=== PATIENT | male | born 1995 | race Caucasian/White ===

== ENCOUNTER 2022-04-04 16:41 | Inpatient (IN) | payer BC ==
[2022-04-04 17:44] LABS: BASO % 0.6 % (0-2.0); EOS % 0.9 % (0-4.5); HEMATOCRIT 29.8 % (35.4-49); HEMOGLOBIN 10.1 GM/dL (11.7-16.9); LYMPH % 6.5 % (8-40); MCH 28.4 pg (25.7-33.7); MCHC 33.8 g/dl (32.0-35.9); MEAN CELL VOLUME 84.1 fl (80-96); MEAN PLT VOLUME 7.4 fl (7.5-11.1); MONO % 4.8 % (3.8-10.2); NEUT % 87.2 % (42.8-82.8); PLATELET COUNT 322 10^3/uL (134-434); RBC 3.54 M/mm3 (4.00-5.60); RDW 16.8 % (11.9-15.9); WHITE BLOOD COUNT 9.6 K/mm3 (4.0-10.0)
[2022-04-04 18:02] LABS: CHLORIDE 92 mmol/L (98-107); SODIUM 131 mmol/L (136-145)
[2022-04-04 18:04] LABS: ALBUMIN 3.1 g/dl (3.4-5.0); ANION GAP 13 MMOL/L (8-16); BLOOD UREA NITROGEN 61.1 mg/dL (7-18); CALCIUM 8.8 mg/dL (8.5-10.1); CO2 26 mmol/L (21-32); GLUCOSE,RANDOM 108 mg/dL (74-106)
[2022-04-04 18:07] LABS: SGOT/AST 12 U/L (15-37); SGPT/ALT 6 U/L (13-61)
[2022-04-04 18:08] LABS: VENOUS BASE EXCESS -0.1 mmol/L (-2-2); VENOUS O2 SATURATION 17.3 % (70-80); VENOUS PCO2 52.9 mmHg (38-52); VENOUS PH 7.318 (7.310-7.410)
[2022-04-04 18:09] LABS: BILIRUBIN,TOTAL 0.6 mg/dL (0.2-1); TOT PROT 8.5 g/dl (6.4-8.2)
[2022-04-04 18:10] LABS: ALK PHOS 91 U/L (45-117)
[2022-04-04 18:11] LABS: CREATININE 17.5 mg/dL (0.55-1.3)
[2022-04-04] MEDS ORDERED: DEXTROSE 5% IVPB SCH (19:15)
[2022-04-04] MEDS ORDERED: WATER IVPB SCH (19:15)
[2022-04-04] MEDS ORDERED: GENTAMICIN IVPB SCH (19:15)
[2022-04-04] MEDS ORDERED: HEPARIN NA (PORCINE) 5,000 UNITS/ML 1ML VIAL SQ SCH (22:15)
[2022-04-04 23:12] LABS: LDH 207 U/L (87-246)
[2022-04-05] MEDS: ACETAMINOPHEN 325 MG TABLET (FP) PO PRN ×2 (03:08→20:35)
[2022-04-05] MEDS ORDERED: VANCOMYCIN 1 GM in D5W (PRE-DOCKED) 1,000 MG/250 ML IVPB ONE (03:15)
[2022-04-05 04:08] VITALS: BMI 36.7
[2022-04-05] MEDS: HEPARIN NA (PORCINE) 5,000 UNITS/ML 1ML VIAL SQ SCH ×3 (05:56→22:02)
[2022-04-05 08:49] LABS: BASO % 0.4 % (0-2.0); HEMATOCRIT 26.5 % (35.4-49); HEMOGLOBIN 9.2 GM/dL (11.7-16.9); LYMPH % 14.5 % (8-40); MCHC 34.6 g/dl (32.0-35.9); MEAN CELL VOLUME 83.8 fl (80-96); MEAN PLT VOLUME 7.5 fl (7.5-11.1); NEUT % 75.1 % (42.8-82.8); PLATELET COUNT 284 10^3/uL (134-434); RBC 3.17 M/mm3 (4.00-5.60); RDW 16.3 % (11.9-15.9); WHITE BLOOD COUNT 7.9 K/mm3 (4.0-10.0)
[2022-04-05 09:06] LABS: MAGNESIUM 2.2 mg/dL (1.8-2.4)
[2022-04-05 09:09] LABS: PHOSPHOROUS 6.6 mg/dL (2.5-4.9)
[2022-04-05] MEDS ORDERED: PIPERACILLIN/TAZOBACTAM 2.25 GM VIAL IVPB ONE ×2 (10:30→17:17)
[2022-04-05] MEDS ORDERED: DEXTROSE 5%-WATER - 50 ML IVPB ONE ×2 (10:30→17:17)
[2022-04-05] MEDS: PIPERACILLIN/TAZOB 2.25 GM 2.25 GM in DEXTROSE 5%-WATER - 50 ML IVPB SCH ×2 (10:31→17:20)
[2022-04-05] MEDS: PERITONEAL DIALYSIS 1.5% SOLN 2,500 ML IP SCH ×3 (16:00→23:14)
[2022-04-05] MEDS: SEVELAMER CARBONATE 800 MG TAB (FP) PO SCH (17:20)
[2022-04-06] MEDS ORDERED: DEXTROSE 5%-WATER - 50 ML IVPB ONE ×3 (00:57→17:19)
[2022-04-06] MEDS ORDERED: PIPERACILLIN/TAZOBACTAM 2.25 GM VIAL IVPB ONE ×3 (00:57→17:19)
[2022-04-06 01:43] LABS: BF WBC & OTHER NUCLEATED CELLS 3002 /mm3
[2022-04-06] MEDS: PIPERACILLIN/TAZOB 2.25 GM 2.25 GM in DEXTROSE 5%-WATER - 50 ML IVPB SCH ×3 (02:03→17:26)
[2022-04-06 03:47] LABS: BODY FLUID BASOPHIL 1 %; BODY FLUID MONOCYTE 8 %
[2022-04-06] MEDS: HEPARIN NA (PORCINE) 5,000 UNITS/ML 1ML VIAL SQ SCH ×3 (05:04→21:10)
[2022-04-06] MEDS: ACETAMINOPHEN 325 MG TABLET (FP) PO PRN (05:18)
[2022-04-06] MEDS: PERITONEAL DIALYSIS 1.5% SOLN 2,500 ML IP SCH ×2 (05:45→11:06)
[2022-04-06] MEDS: SEVELAMER CARBONATE 800 MG TAB (FP) PO SCH ×3 (07:49→17:26)
[2022-04-06] MEDS: VITAMIN B COMP W-C 1 EA TABLET (NEPHRO-VITE) PO SCH (09:11)
[2022-04-06 09:49] LABS: BASO % 0.6 % (0-2.0); EOS % 2.6 % (0-4.5); HEMATOCRIT 27.7 % (35.4-49); HEMOGLOBIN 9.4 GM/dL (11.7-16.9); LYMPH % 13.7 % (8-40); MCH 28.6 pg (25.7-33.7); MCHC 34.1 g/dl (32.0-35.9); MEAN CELL VOLUME 83.9 fl (80-96); MEAN PLT VOLUME 7.3 fl (7.5-11.1); MONO % 6.8 % (3.8-10.2); NEUT % 76.3 % (42.8-82.8); PLATELET COUNT 283 10^3/uL (134-434); WHITE BLOOD COUNT 6.7 K/mm3 (4.0-10.0)
[2022-04-06 10:10] LABS: CHLORIDE 87 mmol/L (98-107); SODIUM 128 mmol/L (136-145)
[2022-04-06 10:19] LABS: CALCIUM 8.9 mg/dL (8.5-10.1)
[2022-04-06 10:20] LABS: ANION GAP 16 MMOL/L (8-16); BLOOD UREA NITROGEN 74.9 mg/dL (7-18); CO2 25 mmol/L (21-32); GLUCOSE,RANDOM 99 mg/dL (74-106); MAGNESIUM 2.2 mg/dL (1.8-2.4)
[2022-04-06 10:22] LABS: PHOSPHOROUS 6.2 mg/dL (2.5-4.9); SGPT/ALT 6 U/L (13-61)
[2022-04-06 10:24] LABS: BILIRUBIN,TOTAL 0.5 mg/dL (0.2-1); TOT PROT 7.3 g/dl (6.4-8.2)
[2022-04-06 10:25] LABS: ALK PHOS 72 U/L (45-117); SGOT/AST 10 U/L (15-37)
[2022-04-06 10:27] LABS: ALBUMIN 2.5 g/dl (3.4-5.0); CREATININE 18.9 mg/dL (0.55-1.3)
[2022-04-06] MEDS ORDERED: PERITONEAL DIALYSIS 2.5% SOLN 2,500 ML IP SCH (12:00)
[2022-04-06] MEDS: GENTAMICIN SO4 0.1% TOP CREAM 15 GM/TUBE TP SCH (13:29)
[2022-04-06 15:07] LABS: BF WBC & OTHER NUCLEATED CELLS 784 /mm3
[2022-04-06 18:09] LABS: EPI CELLS 14 /uL (0-25.1); HYALINE CASTS 1 /uL (0-3.1); PH,URINE 7.5 (5.0-8.0); URINE APPEARANCE CLEAR; URINE BACTERIA 26 /uL (0-1359); URINE BILIRUBIN NEGATIVE (NEGATIVE); URINE COLOR YELLOW; URINE GLUCOSE (UA) 1+ (NEGATIVE); URINE KETONE NEGATIVE (NEGATIVE); URINE LEUK ESTERASE TRACE (NEGATIVE); URINE NITRITE NEGATIVE (NEGATIVE); URINE PROTEIN 3+ (NEGATIVE); URINE RBC 25 /uL (0-23.9); URINE UROBILINOGEN 0.2 mg/dL (0.2-1.0); URINE WBC 55 /uL (0-25.8)
[2022-04-06] MEDS ORDERED: D3 PO SCH (19:00)
[2022-04-06] MEDS ORDERED: [UNRECOGNIZED DRUG - OTHER] PO SCH (19:00)
[2022-04-06] MEDS ORDERED: DHA PO SCH (19:00)
[2022-04-06] MEDS ORDERED: EPA PO SCH (19:00)
[2022-04-06] MEDS ORDERED: FOLIC PO SCH (19:00)
[2022-04-06] MEDS: HEPARIN IP SCH (19:45)
[2022-04-06] MEDS: PERITONEAL DIALYSIS 2.5% IP SCH (19:45)
[2022-04-06] MEDS: CARVEDILOL 25 MG TABLET (FP) PO SCH (21:09)
[2022-04-07] MEDS ORDERED: PIPERACILLIN/TAZOBACTAM 2.25 GM VIAL IVPB ONE ×2 (01:11→09:40)
[2022-04-07] MEDS ORDERED: DEXTROSE 5%-WATER - 50 ML IVPB ONE ×2 (01:11→09:41)
[2022-04-07] MEDS: PERITONEAL DIALYSIS 2.5% IP SCH ×3 (02:03→19:18)
[2022-04-07] MEDS: PIPERACILLIN/TAZOB 2.25 GM 2.25 GM in DEXTROSE 5%-WATER - 50 ML IVPB SCH ×2 (02:03→09:48)
[2022-04-07] MEDS: HEPARIN IP SCH ×3 (02:03→19:18)
[2022-04-07] MEDS: HEPARIN NA (PORCINE) 5,000 UNITS/ML 1ML VIAL SQ SCH ×3 (06:47→22:02)
[2022-04-07] MEDS: LEVOTHYROXINE NA 50 MCG TABLET (FP) PO SCH (06:47)
[2022-04-07] MEDS: SEVELAMER CARBONATE 800 MG TAB (FP) PO SCH ×3 (08:24→17:23)
[2022-04-07 08:49] LABS: BASO % 0.8 % (0-2.0); EOS % 4.2 % (0-4.5); HEMATOCRIT 25.9 % (35.4-49); HEMOGLOBIN 8.8 GM/dL (11.7-16.9); LYMPH % 21.8 % (8-40); MCH 28.4 pg (25.7-33.7); MCHC 34.1 g/dl (32.0-35.9); MEAN CELL VOLUME 83.3 fl (80-96); MEAN PLT VOLUME 7.3 fl (7.5-11.1); MONO % 7.6 % (3.8-10.2); NEUT % 65.6 % (42.8-82.8); PLATELET COUNT 301 10^3/uL (134-434); RBC 3.11 M/mm3 (4.00-5.60); RDW 16.4 % (11.9-15.9); WHITE BLOOD COUNT 5.6 K/mm3 (4.0-10.0)
[2022-04-07 09:19] LABS: CHLORIDE 89 mmol/L (98-107); SODIUM 129 mmol/L (136-145)
[2022-04-07 09:31] LABS: ANION GAP 16 MMOL/L (8-16); BLOOD UREA NITROGEN 71.5 mg/dL (7-18); CALCIUM 8.3 mg/dL (8.5-10.1); CO2 24 mmol/L (21-32); GLUCOSE,RANDOM 121 mg/dL (74-106)
[2022-04-07 09:33] LABS: ALBUMIN 2.3 g/dl (3.4-5.0); SGPT/ALT 7 U/L (13-61)
[2022-04-07 09:35] LABS: BILIRUBIN,TOTAL 0.6 mg/dL (0.2-1); SGOT/AST 9 U/L (15-37); TOT PROT 6.9 g/dl (6.4-8.2)
[2022-04-07 09:37] LABS: ALK PHOS 65 U/L (45-117)
[2022-04-07 09:42] LABS: CREATININE 18.1 mg/dL (0.55-1.3)
[2022-04-07] MEDS: ISOSORBIDE MONONITRATE 30 MG TAB.SR.24H (FP) PO SCH (09:47)
[2022-04-07] MEDS: CARVEDILOL 25 MG TABLET (FP) PO SCH ×2 (09:47→22:02)
[2022-04-07] MEDS: VITAMIN B COMP W-C 1 EA TABLET (NEPHRO-VITE) PO SCH (09:48)
[2022-04-07] MEDS: GENTAMICIN SO4 0.1% TOP CREAM 15 GM/TUBE TP SCH (09:48)
[2022-04-07] MEDS ORDERED: CEFAZOLIN SODIUM IVPB SCH (13:00)
[2022-04-07] MEDS ORDERED: PERITONEAL DIALYSIS 1.5% IVPB SCH (13:00)
[2022-04-07] MEDS: PERITONEAL DIALYSIS 2.5% IVPB SCH (13:29)
[2022-04-07] MEDS: CEFAZOLIN SODIUM IVPB SCH (13:29)
[2022-04-07] MEDS ORDERED: EPOETIN ALFA 10,000 UNIT/1 ML VIAL SQ ONE (13:30)
[2022-04-07 15:24] LABS: BF WBC & OTHER NUCLEATED CELLS 370 /mm3
[2022-04-07 15:53] LABS: BODY FLUID MONOCYTE 29 %; BODYL FLD EOSINOPHIL 1 %
[2022-04-08] MEDS: HEPARIN IP SCH ×3 (01:09→19:00)
[2022-04-08] MEDS: PERITONEAL DIALYSIS 2.5% IP SCH ×3 (01:09→19:00)
[2022-04-08] MEDS: HEPARIN NA (PORCINE) 5,000 UNITS/ML 1ML VIAL SQ SCH ×3 (06:16→13:53)
[2022-04-08] MEDS: LEVOTHYROXINE NA 50 MCG TABLET (FP) PO SCH (06:16)
[2022-04-08 09:19] LABS: HEMATOCRIT 26.4 % (35.4-49); HEMOGLOBIN 9.1 GM/dL (11.7-16.9); MCH 28.5 pg (25.7-33.7); MCHC 34.3 g/dl (32.0-35.9); PLATELET COUNT 319 10^3/uL (134-434); RBC 3.19 M/mm3 (4.00-5.60); RDW 16.3 % (11.9-15.9); WHITE BLOOD COUNT 4.2 K/mm3 (4.0-10.0)
[2022-04-08 09:35] LABS: CHLORIDE 92 mmol/L (98-107); SODIUM 132 mmol/L (136-145)
[2022-04-08] MEDS: ISOSORBIDE MONONITRATE 30 MG TAB.SR.24H (FP) PO SCH (09:47)
[2022-04-08] MEDS: VITAMIN B COMP W-C 1 EA TABLET (NEPHRO-VITE) PO SCH (09:47)
[2022-04-08] MEDS: CARVEDILOL 25 MG TABLET (FP) PO SCH (09:47)
[2022-04-08] MEDS: SEVELAMER CARBONATE 800 MG TAB (FP) PO SCH ×3 (09:47→17:40)
[2022-04-08 10:08] LABS: ANION GAP 15 MMOL/L (8-16); BLOOD UREA NITROGEN 69.4 mg/dL (7-18); CALCIUM 8.4 mg/dL (8.5-10.1); CO2 25 mmol/L (21-32); MAGNESIUM 2.1 mg/dL (1.8-2.4)
[2022-04-08 10:09] LABS: GLUCOSE,RANDOM 117 mg/dL (74-106)
[2022-04-08 10:11] LABS: PHOSPHOROUS 6.2 mg/dL (2.5-4.9)
[2022-04-08 10:16] LABS: CREATININE 17.5 mg/dL (0.55-1.3)
[2022-04-08] MEDS: GENTAMICIN SO4 0.1% TOP CREAM 15 GM/TUBE TP SCH (10:57)
[2022-04-08] MEDS: CEFAZOLIN SODIUM IVPB SCH (13:10)
[2022-04-08] MEDS: PERITONEAL DIALYSIS 2.5% IVPB SCH (13:10)
[2022-04-08 14:01] VITALS: PULSE 69
[2022-04-08 15:12] LABS: BF WBC & OTHER NUCLEATED CELLS 104 /mm3
[2022-04-08 15:13] LABS: BODY FLUID MONOCYTE 60 %
[2022-04-08 19:39] VITALS: BP 153/92; TEMP 99.9
== END 2022-04-08 20:30 | disposition home or self-care (01) | DRG 371 ==
LOC: JER 16:41 → JERBED 18:47 → J4S 04-05 02:53
PROVIDERS: ADMIT Hospitalist; ATTEND Internal Medicine
DX: K65.2 Spontaneous bacterial peritonitis (principal); N18.6 End stage renal disease; I12.0 Hypertensive chronic kidney disease with stage 5 chronic kidney disease or end stage renal disease; R18.8 Other ascites; E87.1 Hypo-osmolality and hyponatremia; D64.9 Anemia, unspecified; R55 Syncope and collapse; E03.9 Hypothyroidism, unspecified; B96.29 Other Escherichia coli [E. coli] as the cause of diseases classified elsewhere; R16.2 Hepatomegaly with splenomegaly, not elsewhere classified; Z99.2 Dependence on renal dialysis
CPT/HCPCS: 36415; 71045-TC-FY; 74176-TC; 76604-TC; 80048; 80053; 80061; 81003; 82803; 83036; 83605; 83615; 83690; 83735; 84100; 84443; 84484; 85025; 85027; 86140; 86850; 86900; 86901; 87040; 87070; 87075; 87086; 87205; 93005; 93010; 99285-25; C9803-CS; J0885; J1644; U0003; U0005

== ENCOUNTER 2023-09-11 14:29 | Emergency (ER) | payer BC ==
[2023-09-11 14:46] VITALS: RESP 18; TEMP 98.4; BMI 49.9
[2023-09-11] MEDS ORDERED: ACETAMINOPHEN 1000 MG/100 ML BAG IVPB ONE (16:25)
[2023-09-11 16:50] LABS: BASO % 0.8 % (0-2.0); EOS % 3.1 % (0-4.5); HEMATOCRIT 24.4 % (35.4-49); HEMOGLOBIN 8.3 GM/dL (11.7-16.9); LYMPH % 22.4 % (8-40); MCH 29.2 pg (25.7-33.7); MCHC 33.8 g/dl (32.0-35.9); MEAN CELL VOLUME 86.4 fl (80-96); MEAN PLT VOLUME 6.7 fl (7.5-11.1); MONO % 8.6 % (3.8-10.2); NEUT % 65.1 % (42.8-82.8); PLATELET COUNT 278 10^3/uL (134-434); RBC 2.82 M/mm3 (4.00-5.60); RDW 14.5 % (11.9-15.9); WHITE BLOOD COUNT 6.1 K/mm3 (4.0-10.0)
[2023-09-11] MEDS ORDERED: KETOROLAC TROMETHAMINE 30 MG/1 ML VIAL IM ONE (17:03)
[2023-09-11 17:14] LABS: CHLORIDE 94 mmol/L (98-107); INR 1.26 (0.83-1.09); PROTHROMBIN TIME (PATIENT) 14.6 SEC (9.7-13.0); SODIUM 128 mmol/L (136-145)
[2023-09-11 17:16] LABS: ALBUMIN 3.2 g/dl (3.4-5.0); CALCIUM 7.2 mg/dL (8.5-10.1)
[2023-09-11 17:17] LABS: BLOOD UREA NITROGEN 69.6 mg/dL (7-18); CO2 21 mmol/L (21-32); GLUCOSE,RANDOM 88 mg/dL (74-106)
[2023-09-11 17:20] LABS: SGOT/AST 65 U/L (15-37)
[2023-09-11 17:21] LABS: BILIRUBIN,TOTAL 0.4 mg/dL (0.2-1)
[2023-09-11 17:22] LABS: ALK PHOS 93 U/L (45-117)
[2023-09-11] MEDS ORDERED: ACETAMINOPHEN INJECTION 100 ML IVPB ONE (17:22)
[2023-09-11 17:30] LABS: ANION GAP 13 mmol/L (4-13); CREATININE 22.4 mg/dL (0.55-1.3); POTASSIUM 8.5 mmol/L (3.5-5.1); SGPT/ALT 32 U/L (13-61)
[2023-09-11] MEDS ORDERED: KETOROLAC TROMETHAMINE 30 MG/1 ML VIAL ONE (18:45)
[2023-09-11] MEDS ORDERED: PROCHLORPERAZINE MALEATE 5 MG TABLET PO ONE (19:01)
[2023-09-11 19:14] LABS: CHLORIDE 96 mmol/L (98-107); POTASSIUM 4.5 mmol/L (3.5-5.1); SODIUM 133 mmol/L (136-145)
[2023-09-11 19:15] LABS: CALCIUM 7.2 mg/dL (8.5-10.1)
[2023-09-11 19:16] LABS: ANION GAP 14 mmol/L (4-13); BLOOD UREA NITROGEN 73.4 mg/dL (7-18); CO2 23 mmol/L (21-32); GLUCOSE,RANDOM 86 mg/dL (74-106)
[2023-09-11] MEDS ORDERED: PROCHLORPERAZINE INJECTION 10 MG/2 ML VIAL IVPB ONE (19:18)
[2023-09-11] MEDS ORDERED: PROCHLORPERAZINE INJECTION 10 MG/2 ML VIAL ONE (19:58)
[2023-09-11] MEDS ORDERED: NIFEdipine E.R. 30 MG TABLET PO ONE ×2 (20:05→20:34)
[2023-09-11 20:33] VITALS: BP 187/124; PULSE 78
== END 2023-09-11 20:37 | disposition home or self-care (01) ==
LOC: JER 14:29
PROC: 3E033NZ Introduction of Analgesics, Hypnotics, Sedatives into Peripheral Vein, Percutaneous Approach (ICD-10-PCS; principal; 2023-09-11)
PROC: 3E033GC Introduction of Other Therapeutic Substance into Peripheral Vein, Percutaneous Approach (ICD-10-PCS; 2023-09-11)
PROC: 3E033GC Introduction of Other Therapeutic Substance into Peripheral Vein, Percutaneous Approach (ICD-10-PCS; 2023-09-11)
DX: I16.0 Hypertensive urgency (principal); R51.9 Headache, unspecified; Z20.822 Contact with and (suspected) exposure to COVID-19
CPT/HCPCS: 0241U-QW; 36415; 71046-TC-FY; 80048; 80053; 85025; 85610; 93005; 93010; 99285-25

== ENCOUNTER 2025-05-26 13:35 | Inpatient (IN) | payer BC, OTHER ==
[2025-05-26 15:05] LABS: MCHC 32.9 g/dl (32.3-36.5); MEAN CELL VOLUME 92.6 fl (79.0-92.2); MEAN PLT VOLUME 9.5 fl (9.4-12.4); RDW 15.3 % (11.9-15.3)
[2025-05-26 15:27] LABS: GLUCOSE,RANDOM 124 mg/dL (74-106)
[2025-05-26 15:28] LABS: TOT PROT 8.8 g/dl (6.4-8.2)
[2025-05-26 15:29] LABS: CO2 24 mmol/L (21-32)
[2025-05-26 15:31] LABS: ALK PHOS 88 U/L (40-150)
[2025-05-26 15:33] LABS: SGPT/ALT 11 U/L (0-55)
[2025-05-26 15:34] LABS: CREATININE 17.01 mg/dL (0.55-1.3); SGOT/AST 16 U/L (5-34)
[2025-05-26 15:57] LABS: HIV INTERPRETATION NEGATIVE (NEGATIVE)
[2025-05-26 15:58] LABS: HCV DIAGNOSTIC IN-HOUSE W/RFLX NON-REACTIVE (NONREACTIVE)
[2025-05-26] MEDS: VANCOMYCIN/WATER 1250 MG 1,250 MG/250 ML BAG IVPB ONE (16:05)
[2025-05-26] MEDS ORDERED: PIPERACILLIN/TAZOB 3.375 GM 3.375 GM/50 ML BAG IVPB ONE (16:08)
[2025-05-26] MEDS ORDERED: VANCOMYCIN/WATER 1250 MG 1,250 MG/250 ML BAG IVPB ONE (16:08)
[2025-05-26] MEDS: PIPERACILLIN/TAZOB 3.375 GM 3.375 GM in DEXTROSE 5%-WATER - 50 ML IVPB ONE (16:22)
[2025-05-26 16:35] LABS: BG HCT 38.0 % (35.4-49); VENOUS BASE EXCESS -0.6 mmol/L (-2-2); VENOUS O2 SATURATION 62.7 % (70-80); VENOUS PCO2 46.5 mmHg (38-52); VENOUS PH 7.353 (7.310-7.410)
[2025-05-26 16:44] LABS: INR 1.66 (0.83-1.09); PROTHROMBIN TIME (PATIENT) 18.1 SEC (9.7-13.0)
[2025-05-26 16:46] LABS: ACTIVATED PTT 46.2 SECONDS (25.2-36.5)
[2025-05-26] MEDS: SODIUM CHLORIDE 500 ML IV STA (17:15)
[2025-05-26] MEDS ORDERED: ACETAMINOPHEN 325 MG TABLET (FP) ONE (17:43)
[2025-05-26] MEDS: ACETAMINOPHEN 325 MG TABLET (FP) PO ONE (17:46)
[2025-05-26] MEDS ORDERED: VANCOMYCIN IP ONE (18:00)
[2025-05-26] MEDS ORDERED: PERITONEAL DIALYSIS 2.5% IP ONE (18:00)
[2025-05-26] MEDS ORDERED: ALBUTEROL SO4 HFA INHALER IH PRN (21:10)
[2025-05-26] MEDS: MAGNESIUM 2GM/50ML STERILE WATER IVPB IVPB ONE (23:24)
[2025-05-26] MEDS: HEPARIN NA (PORCINE) 5,000 UNITS/ML 1ML VIAL SQ SCH (23:24)
[2025-05-26] MEDS: NIFEdipine E.R 60 MG TABLET PO SCH (23:24)
[2025-05-26] MEDS: CARVEDILOL 25 MG TABLET (FP) PO SCH (23:24)
[2025-05-26] MEDS: ACETAMINOPHEN 1000 MG/100 ML BAG IVPB PRN (23:30)
[2025-05-27] MEDS: PERITONEAL DIALYSIS 2.5% IP ONE (00:01)
[2025-05-27] MEDS: VANCOMYCIN IP ONE (00:01)
[2025-05-27] MEDS: SODIUM CHLORIDE 1,000 ML IV SCH ×2 (02:00→11:43)
[2025-05-27 04:12] LABS: BODY FLUID MACROPHAGES 2 %; BODY FLUID MESOTHELIAL 2 %; BODY FLUID MONOCYTE 3 %
[2025-05-27 04:13] LABS: BODYL FLD EOSINOPHIL 2 %
[2025-05-27] MEDS: LEVOTHYROXINE NA 50 MCG TABLET (FP) PO SCH (06:01)
[2025-05-27] MEDS: ONDANSETRON 4 MG/2 ML VIAL IVPUSH PRN (08:30)
[2025-05-27 08:36] LABS: MCHC 32.9 g/dl (32.3-36.5); MEAN CELL VOLUME 93.3 fl (79.0-92.2); MEAN PLT VOLUME 10.1 fl (9.4-12.4); RDW 15.4 % (11.9-15.3)
[2025-05-27] MEDS: ISOSORBIDE MONONITRATE 60 MG TAB.SR.24H (FP) PO SCH (09:28)
[2025-05-27] MEDS: VITAMIN B COMP W-C 1 EA TABLET (NEPHRO-VITE) PO SCH (09:28)
[2025-05-27] MEDS: PANTOPRAZOLE 40 MG TABLET PO SCH (09:28)
[2025-05-27] MEDS: CALCIUM CARBONATE 650 MG TABLET PO SCH (09:28)
[2025-05-27] MEDS: morphine CARPU-JECT 2 MG/1 ML DISP.SYRIN IVPUSH PRN (09:48)
[2025-05-27 09:59] LABS: GLUCOSE,RANDOM 140 mg/dL (74-106); TOT PROT 8.3 g/dl (6.4-8.2)
[2025-05-27 10:00] LABS: CO2 20 mmol/L (21-32)
[2025-05-27 10:02] LABS: ALK PHOS 77 U/L (40-150)
[2025-05-27 10:05] LABS: CREATININE 17.26 mg/dL (0.55-1.3); IRON SERUM 58 ug/dL (50-175); SGOT/AST 45 U/L (5-34); SGPT/ALT 6 U/L (0-55)
[2025-05-27] MEDS ORDERED: DEXTROSE 5%-0.45% SALINE 1,000 ML IV SCH (10:30)
[2025-05-27] MEDS: PERITONEAL DIALYSIS 2.5% SOLN 2,500 ML IP SCH (11:43)
[2025-05-27 15:58] LABS: MCHC 32.1 g/dl (32.3-36.5); MEAN CELL VOLUME 95.0 fl (79.0-92.2); MEAN PLT VOLUME 9.7 fl (9.4-12.4); RDW 15.6 % (11.9-15.3)
[2025-05-27] MEDS: CASPOFUNGIN ACETATE 70 MG in SODIUM CHLORIDE 250 ML IVPB ONE (15:58)
[2025-05-27 16:56] LABS: GLUCOSE,RANDOM 114 mg/dL (74-106)
[2025-05-27 16:57] LABS: CO2 21 mmol/L (21-32)
[2025-05-27 17:02] LABS: CREATININE 17.59 mg/dL (0.55-1.3)
[2025-05-27 17:03] VITALS: BMI 49.8
[2025-05-27] MEDS: PIPERACILLIN/TAZOB 2.25 GM 2.25 GM in DEXTROSE 5%-WATER - 50 ML IVPB SCH (17:34)
[2025-05-28] MEDS: PERITONEAL DIALYSIS 2.5% SOLN 2,500 ML IP SCH ×2 (02:56→08:51)
[2025-05-28 07:23] LABS: MCHC 32.5 g/dl (32.3-36.5); MEAN CELL VOLUME 94.1 fl (79.0-92.2); MEAN PLT VOLUME 9.8 fl (9.4-12.4); RDW 15.5 % (11.9-15.3)
[2025-05-28 07:45] LABS: GLUCOSE,RANDOM 130 mg/dL (74-106)
[2025-05-28 07:47] LABS: CO2 22 mmol/L (21-32)
[2025-05-28 07:51] LABS: CREATININE 17.90 mg/dL (0.55-1.3)
[2025-05-28] MEDS: ASPIRIN 325 MG TABLET PO ONE (08:51)
[2025-05-28] MEDS ORDERED: ASPIRIN 81 MG CHEWABLE TABLETS PO SCH (10:00)
[2025-05-28] MEDS: CASPOFUNGIN ACETATE 50 MG in SODIUM CHLORIDE 250 ML IVPB SCH (10:24)
[2025-05-28 10:30] VITALS: BP 145/82; PULSE 101; RESP 16; TEMP 99.3
== END 2025-05-28 12:28 | disposition short-term general hospital (02) | DRG 871 ==
LOC: JER 13:35 → JERBED 19:01 → J4S 22:24
PROVIDERS: ADMIT Internal Medicine; ATTEND Internal Medicine
DX: A41.9 Sepsis, unspecified organism (principal); K65.9 Peritonitis, unspecified; N18.6 End stage renal disease; I12.0 Hypertensive chronic kidney disease with stage 5 chronic kidney disease or end stage renal disease; E87.1 Hypo-osmolality and hyponatremia; K56.609 Unspecified intestinal obstruction, unspecified as to partial versus complete obstruction; N17.9 Acute kidney failure, unspecified; Z99.2 Dependence on renal dialysis; D64.9 Anemia, unspecified; E03.9 Hypothyroidism, unspecified; J45.909 Unspecified asthma, uncomplicated; E83.42 Hypomagnesemia; E83.39 Other disorders of phosphorus metabolism
CPT/HCPCS: 36415; 71045-TC-FY; 74019-TC-FY; 74176-TC; 80048; 80053; 82728; 82803; 83540; 83550; 83605; 83690; 83735; 84100; 84484; 85025; 85610; 85730; 86803; 86850; 86900; 86901; 87040; 87070; 87075; 87077; 87106; 87205; 87389; 87637-QW; 93005; 93010; 99285-25; G0480